=== PATIENT | male | born 1995 | race African-American/Black ===

== ENCOUNTER 2017-12-19 20:08 | Emergency (ER) | payer MEDICAID, OTHER ==
[~2017-12-19] VITALS: Ht 177.8 cm; Wt 75.0 kg
[2017-12-19 23:44] VITALS: BP 114/72
[2017-12-20] MEDS ORDERED: SODIUM CHLORIDE 0.9% 1,000 ML IV ONE (00:53)
[2017-12-20] MEDS ORDERED: ONDANSETRON HCL 4MG/2ML VIAL IM ONE (01:00)
== END 2017-12-20 01:00 | disposition left against medical advice (07) ==
LOC: ER 20:40
DX: R11.2 Nausea with vomiting, unspecified (principal); R19.7 Diarrhea, unspecified; R52 Pain, unspecified
CPT/HCPCS: 99283; J7030